=== PATIENT | female | born 1975 | race Caucasian/White ===

== ENCOUNTER 2017-02-28 14:44 | Emergency (ER) | payer BC, OTHER ==
[~2017-02-28] VITALS: Ht 162.6 cm; Wt 72.6 kg
[~2017-02-28 14:44] MED LIST: ADDERALL 20 MG20 MG PO
--- NOTE | 2017-02-28 18:04 | Diagnostic Imaging Report ---
EXAM: XR CHEST 2 VIEWS DATE: 02/28/2017 2:55 PM INDICATION: COMPARISON: None FINDINGS: Lines and Tubes: None Heart and Mediastinum: No acute findings. Lungs and Pleura: No acute findings. Minimal opacities in the lung bases statistically represent atelectasis, however, infectious process could have a similar appearance. Bones and Soft Tissues: No acute findings. IMPRESSION: 1. No acute cardiopulmonary findings. Signed by: Dr. Florian Avitia MD on 02/28/2017 6:01 PM
== END 2017-02-28 17:47 | disposition home or self-care (01) ==
LOC: ER 14:44
DX: R05 Cough (principal); J00 Acute nasopharyngitis [common cold]; B34.9 Viral infection, unspecified; F17.210 Nicotine dependence, cigarettes, uncomplicated
CPT/HCPCS: 71020; 87400; 99283

== ENCOUNTER 2017-09-26 09:01 | Emergency (ER) | payer BC ==
[~2017-09-26] VITALS: Ht 162.6 cm; Wt 72.6 kg
[2017-09-26] MEDS ORDERED: CLINDAMYCIN PHOS 600 MG/ 4 ML VIAL IM ONE (09:30)
[2017-09-26] MEDS ORDERED: HYDROCODONE/APAP 10MG-325MG TAB PO ONE (10:30)
[2017-09-26 10:51] VITALS: BP 123/80
== END 2017-09-26 10:50 | disposition home or self-care (01) ==
LOC: ER 09:01
DX: L02.416 Cutaneous abscess of left lower limb (principal)
CPT/HCPCS: 96372; 99283

== ENCOUNTER 2017-09-28 08:45 | Emergency (ER) | payer BC ==
[~2017-09-28] VITALS: Ht 162.6 cm; Wt 72.6 kg
[2017-09-28] MEDS ORDERED: KETOROLAC TROMETHAMINE 30 MG/ML VIAL IV STA (08:54)
[2017-09-28] MEDS ORDERED: VANCOMYCIN 1GM/NS 250 ML 250 ML IV ONE (09:00)
[2017-09-28 09:33] LABS: BASOPHILS # (AUTO) 0.1 (0.0-0.1); BASOPHILS % 0.4 % (0.0-1.0); EOSINOPHILS # (AUTO) 0.2 (0.0-0.4); HEMATOCRIT 40.1 % (34.2-44.1); HEMOGLOBIN 13.6 g/dL (12.0-16.0); LYMPHOCYTES # (AUTO) 2.8 (1.0-3.2); LYMPHOCYTES % 15.7 % (18.0-39.1); MEAN CORPUSCULAR HEMOGLOBIN 30.7 pg (28-32); MEAN CORPUSCULAR HGB CONC 33.9 g/dL (31-35); MEAN CORPUSCULAR VOLUME 90.5 fL (81-99); MONOCYTES # (AUTO) 1.6 (0.2-0.8); MONOCYTES % 8.8 % (4.4-11.3); NEUTROPHILS # (AUTO) 13.1 (2.1-6.9); NEUTROPHILS % 73.3 % (38.7-80.0); PLATELET COUNT 319 x10e3/uL (140-360); RED BLOOD COUNT 4.43 x10e6/uL (3.6-5.1); RED CELL DISTRIBUTION WIDTH 12.9 % (11.7-14.4)
[2017-09-28 09:44] LABS: ALANINE AMINOTRANSFERASE 14 IU/L (0-55); ALBUMIN 3.3 g/dL (3.5-5.0); ALBUMIN/GLOBULIN RATIO 0.9 (0.8-2.0); ALKALINE PHOSPHATASE 65 IU/L (40-150); ANION GAP 12.5 mmol/L (8-16); BLOOD UREA NITROGEN 12 mg/dL (7-26); BUN/CREATININE RATIO 15 (6-25); CALCIUM 9.5 mg/dL (8.4-10.2); CARBON DIOXIDE 27 mmol/L (22-29); CHLORIDE 101 mmol/L (98-107); CREATININE, SERUM 0.82 mg/dL (0.57-1.11); EST GLOMERULAR FILTRATION RATE > 60 ML/MIN (60-); GLUCOSE 93 mg/dL (74-118); POTASSIUM 3.5 mmol/L (3.5-5.1); SODIUM 137 mmol/L (136-145)
== END 2017-09-28 11:37 | disposition home or self-care (01) ==
LOC: ER 08:45
DX: S80.262A Insect bite (nonvenomous), left knee, initial encounter (principal); L03.116 Cellulitis of left lower limb
CPT/HCPCS: 36415; 80053; 85025; 87040; 87071; 87186; 87205; 99284; J1885; J3370